=== PATIENT | male | born 1965 | race Caucasian/White ===

== ENCOUNTER 2020-05-18 18:26 | Emergency (ER) | payer BC ==
[~2020-05-18] VITALS: Ht 175.2 cm; Wt 115.7 kg
== END 2020-05-18 21:53 | disposition left against medical advice (07) ==
LOC: ED 18:26
DX: M79.604 Pain in right leg (principal); Z53.21 Procedure and treatment not carried out due to patient leaving prior to being seen by health care provider

== ENCOUNTER 2020-05-19 19:11 | Emergency (ER) | payer BC ==
[~2020-05-19] VITALS: Ht 175.2 cm; Wt 115.7 kg
== END 2020-05-19 22:31 | disposition home or self-care (01) ==
LOC: ED 19:11
DX: M79.661 Pain in right lower leg (principal); R25.2 Cramp and spasm

== ENCOUNTER 2021-01-27 10:47 | Inpatient (IN) | payer BC ==
[~2021-01-27] VITALS: Wt 111.1 kg
[2021-01-27 11:00] VITALS: BP 143/88
[2021-01-27 11:22] LABS: BASO % 0.5 % (0.0-1.0); EOS # 0.3 10*3/uL (0.0-0.4); EOS % 4.4 % (1.0-4.0); HEMATOCRIT 46.5 % (42.0-52.0); LYMPH # 1.4 10*3/uL (1.3-4.4); LYMPH % 22.8 % (27.0-41.0); MEAN CELL VOLUME 92.8 fl (80.0-94.0); MEAN CORPUSCULAR HGB 30.3 pg (27.0-31.0); MEAN CORPUSCULAR HGB CONC 32.7 g/dl (33.0-37.0); MEAN PLATELET VOLUME 9.8 fl (9.6-12.3); MONO # 0.5 10*3/uL (0.1-1.0); MONO % 7.6 % (3.0-9.0); NEUT # 3.8 10*3/uL (2.3-7.9); NEUT % 64.5 % (47.0-73.0); PLATELET COUNT AUTOMATED 172 10*3/uL (130-400); RED BLOOD COUNT 5.01 10*6/uL (4.50-5.90); RED CELL DISTRI WIDTH 13.2 % (0-14.5); WHITE BLOOD COUNT 5.9 10*3/uL (4.8-10.8)
[2021-01-27 11:34] LABS: ACT PARTIAL THROMBO TIME 26.9 SECONDS (20.0-32.1)
[2021-01-27 11:44] LABS: ALBUMIN 3.7 gm/dl (3.1-4.5); ALKALINE PHOSPHATASE 56 U/L (45-117); BUN 13 mg/dl (7-24); CHLORIDE 103 mmol/L (98-107); CREATININE 0.95 mg/dL (0.70-1.30); POTASSIUM 3.8 mmol/L (3.5-5.1); SGOT/AST 19 IU/L (3-35); SGPT/ALT 28 U/L (12-78); SODIUM 139 mmol/L (136-145); TOTAL PROTEIN 7.2 gm/dL (6.4-8.2)
[2021-01-27 11:46] LABS: TROPONIN I < 0.015 ng/ml (<0.045)
[2021-01-27 14:06] VITALS: BP 138/79
[2021-01-27 15:00] VITALS: BP 114/69; BP 115/73
[2021-01-27 20:10] VITALS: BP 136/66
[2021-01-27 22:09] VITALS: BP 119/76
[2021-01-27 23:12] VITALS: BP 119/76
[2021-01-28 03:24] VITALS: BP 108/75
[2021-01-28 04:28] LABS: BASO % 0.3 % (0.0-1.0); EOS # 0.3 10*3/uL (0.0-0.4); EOS % 4.3 % (1.0-4.0); HEMATOCRIT 44.2 % (42.0-52.0); LYMPH # 1.2 10*3/uL (1.3-4.4); LYMPH % 17.5 % (27.0-41.0); MEAN CELL VOLUME 92.1 fl (80.0-94.0); MEAN CORPUSCULAR HGB CONC 32.6 g/dl (33.0-37.0); MEAN PLATELET VOLUME 10.3 fl (9.6-12.3); MONO # 0.6 10*3/uL (0.1-1.0); MONO % 8.7 % (3.0-9.0); NEUT # 4.8 10*3/uL (2.3-7.9); NEUT % 68.8 % (47.0-73.0); PLATELET COUNT AUTOMATED 191 10*3/uL (130-400)
[2021-01-28 04:49] LABS: ALBUMIN 3.2 gm/dl (3.1-4.5); ALKALINE PHOSPHATASE 53 U/L (45-117); BUN 15 mg/dl (7-24); CHLORIDE 103 mmol/L (98-107); CHOLESTEROL 169 mg/dL (<200); CREATININE 0.96 mg/dL (0.70-1.30); FREE T4 0.84 ng/dl (0.76-1.46); LDL CHOLESTEROL 65 mg/dL (9-159); POTASSIUM 3.7 mmol/L (3.5-5.1); SGOT/AST 16 IU/L (3-35); SGPT/ALT 24 U/L (12-78); SODIUM 140 mmol/L (136-145); TOTAL PROTEIN 6.3 gm/dL (6.4-8.2); TRIGLYCERIDES 298 mg/dl (<150)
[2021-01-28 06:34] VITALS: BP 117/63
[2021-01-28 07:15] LABS: VITAMIN D, 25-HYDROXY 16.9 ng/mL (30-100)
[2021-01-28 08:00] VITALS: BP 111/68
[2021-01-28 13:01] VITALS: BP 149/88
== END 2021-01-28 15:26 | disposition home or self-care (01) | DRG 206 ==
LOC: ED 10:47 → EDHOLD 13:12
PROVIDERS: Emergency Medicine; Internal Medicine; ADMIT Student in an Organized Health Care Education/Training Program; ATTEND Student in an Organized Health Care Education/Training Program
PROC: 4A02XM4 Measurement of Cardiac Total Activity, External Approach (ICD-10-PCS; principal; 2021-01-28)
PROC: 3E073KZ Introduction of Other Diagnostic Substance into Coronary Artery, Percutaneous Approach (ICD-10-PCS; 2021-01-28)
DX: M94.0 Chondrocostal junction syndrome [Tietze] (principal); E44.1 Mild protein-calorie malnutrition; J45.909 Unspecified asthma, uncomplicated; E78.1 Pure hyperglyceridemia; R73.9 Hyperglycemia, unspecified; E66.9 Obesity, unspecified; E55.9 Vitamin D deficiency, unspecified; R00.1 Bradycardia, unspecified; Z80.1 Family history of malignant neoplasm of trachea, bronchus and lung; Z85.828 Personal history of other malignant neoplasm of skin